=== PATIENT | male | born 1995 | race Caucasian/White ===

== ENCOUNTER 2017-09-03 17:34 | Emergency (ER) | payer OTHER ==
[2017-09-03 17:44] VITALS: BP 140/93
--- NOTE | 2017-09-03 17:53 | ER Report ---
History and Physical Time Seen By MD: 17:52 Hx. of Stated Complaint: BITTEN BY DOG ON BACK OF LEFT LEG AND LEFT ARM. HPI/ROS CHIEF COMPLAINT: dog bite HISTORY OF PRESENT ILLNESS: This is a 21 year old male. 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 He has bites to the back of his left arm and left leg. Dog owners say that the dog has all immunizations and no history of attacks. The patient is up todate on immunizations. Allergies: Coded Allergies: No Known Drug Allergies (Unverified , 09/03/17) Home Meds Active Scripts Amoxicillin/Pot Clav 875-125 Mg Tab (AUGMENTIN 875-125 TABLET) 1 Each Tablet, 1 TAB PO Q12H, #14 TAB 0 Refills Prov:HAMILTON JOSEPH MD 09/03/17 Reviewed Nurses Notes: Yes Constitutional Vital Sign - Last 24 Hours 09/03/17 17:44 Temp 98.2 Pulse 92 Resp 18 B/P (MAP) 140/93 Pulse Ox 93 O2 Delivery Room Air Physical Exam General: Alert, no acute distress. Skin: Back of left forearm with deep abrasion type bites and shallow puncture. No need for suture. Back of left thigh also with dog bite abrasions. Neuro: normal sensation. Cardiology: Normal cap refill. Musculoskeletal: No deficits of motion. Medical Decision Making ED Course/Re-evaluation ED Course Wounds cleaned and bandaged. No need for tetanus at this time. Wound care discussed. See instructions below. Starting Augmentin for 7 days. Decision to Disposition Date: September 03, 2017 Decision to Disposition Time: 18:03 Depart Departure Latest Vital Signs Vital Signs Date Time Temp Pulse Resp B/P (MAP) Pulse Ox O2 Delivery O2 Flow Rate FiO2 09/03/17 17:44 98.2 92 18 140/93 93 Room Air Impression: Primary Impression: Dog bite of multiple sites Condition: Improved Disposition: HOME OR SELF-CARE New Scripts Amoxicillin/Pot Clav 875-125 Mg Tab (AUGMENTIN 875-125 TABLET) 1 Each Tablet 1 TAB PO Q12H, #14 TAB 0 Refills Prov: HAMILTON JOSEPH MD 09/03/17 Patient Instructions: Animal Bite (ED) Additional Instructions: Wound Care: Wash the wound once a day with soap and water. Dry the wound and apply a small amount of antibiotic ointment with a clean dressing. Pain Control: Use Tylenol or ibuprofen for pain. Using and ice pack can help reduce swelling. Antibiotic: Augmentin 875/125 twice a day for 7 days. Make sure to contact the [facility]'s office to let Animal Control know about the dog bite so that they can track and monitor. This is required by [place] law. HAMILTON JOSEPH MD September 03, 2017 17:53
[2017-09-03] MEDS ORDERED: AMOX-559 PO (18:06)
== END 2017-09-03 18:36 | disposition home or self-care (01) ==
LOC: ER 17:54
DX: S81.852A Open bite, left lower leg, initial encounter (principal); S41.152A Open bite of left upper arm, initial encounter; W54.0XXA Bitten by dog, initial encounter
CPT/HCPCS: 99282